=== PATIENT | female | born 1985 ===

== ENCOUNTER 2016-09-15 04:18 | Emergency (ER) | payer OTHER ==
[2016-09-15 04:22] VITALS: TEMP 99.3
--- NOTE | 2016-09-15 05:12 | ED PDOC ---
Lower Extremity Pain/Injury Chief Complaint (Provider): Fall out of bed History Per: Patient History/Exam Limitations: no limitations Onset/Duration Of Symptoms: Other ([facility] 2:30 a.m. on 09/15/16 ) Current Symptoms Are (Timing): Still Present Severity: Moderate Pain Scale Rating Of: 7 Additional Complaint(s): 31 y.o. female with complaint of fall out of bed shortly before arrival at [facility] 2:30 a.m. Pt. reports falling on hard wood floor from bed. Pt. denies any head trauma. Pt. reports was not able to bare weight and pain was bearable and attempted to fall asleep but got up because of the pain and decided to come to the E.R. - Hip Description Of Injury: Fell (out of bed ) Currently Unable To: Bear Weight (due to pain) - Knee Description Of Injury: Fell (denies head trauma ) <Dinh Pozo - Last Filed: 09/15/16 06:53> <Kyle Martinez - Last Filed: 09/15/16 07:02> Time Seen by Provider: 09/15/16 04:25 Chief Complaint (Nursing): Lower Extremity Problem/Injury Supervising Attending Note - Attestation: I have personally seen and examined this patient.: Yes I have fully participated in the care of the patient.: Yes I have reviewed all pertinent clinical information, including history, physical exam and plan: Yes - Notes: Notes:: 5th metatarsal fx after falling off bed, no NV compromise, podiatry aware, will sign out to day team pending orhto recs. <Kyle Martinez - Last Filed: 09/15/16 07:02> Past Medical History Vital Signs: Last Vital Signs Temp 99.3 F 09/15/16 04:20 Pulse 76 09/15/16 04:20 Resp 18 09/15/16 04:20 BP 119/63 09/15/16 04:20 Pulse Ox 100 09/15/16 04:20 - Medical History PMH: No Chronic Diseases - Surgical History Other surgeries: Ear tubes, breast cyst - Family History Family History: States: Other - Social History Current smoker - smoking cessation education provided: No Alcohol: Other (Had 6 alcoholic beverages today) Drugs: Denies <Dinh Pozo - Last Filed: 09/15/16 06:53> Vital Signs: Last Vital Signs Temp 99.3 F 09/15/16 04:20 Pulse 76 09/15/16 04:20 Resp 18 09/15/16 04:20 BP 119/63 09/15/16 04:20 Pulse Ox 100 09/15/16 06:53 <Kyle Martinez - Last Filed: 09/15/16 07:02> - Allergies Allergies/Adverse Reactions: Allergies Allergy/AdvReac Type Severity Reaction Status Date / Time Penicillins Allergy Verified 09/15/16 05:00 Wells Criteria for PE - Wells Criteria for Pulmonary Embolism Clinical Signs and Symptoms of DVT: No P.E is #1 Diagnosis, or Equally Likely: No Heart Rate >100: No Immobilization at least 3 days;Surgery previous 4 weeks: No Previous, objectively diagnosed PE or DVT: No Hemoptysis: No Malignancy w/treatment within 6 months, or palliative: No Total Score: 0 <Dinh Pozo - Last Filed: 09/15/16 06:53> Review of Systems Constitutional: Negative for: Fever, Chills, Sweats Eyes: Negative for: Pain, Vision Change ENT: Negative for: Ear Pain, Ear Discharge Cardiovascular: Negative for: Chest Pain, Palpitations, Orthopnea Respiratory: Negative for: Cough, Shortness of Breath, Hemoptysis Gastrointestinal: Negative for: Nausea, Vomiting, Abdominal Pain, Diarrhea Genitourinary Female: Negative for: Dysuria, Frequency, Incontinence Musculoskeletal: Negative for: Neck Pain, Shoulder Pain, Arm Pain Neurological: Negative for: Weakness, Numbness, Incoordination, Change in Speech Psych: Negative for: Anxiety, Depression <Dinh Pozo - Last Filed: 09/15/16 06:53> Physical Exam - Reviewed Vital Signs Reviewed: Yes - Physical Exam Appears: Positive for: Well, Non-toxic Head Exam: Positive for: ATRAUMATIC, NORMOCEPHALIC Skin: Positive for: Normal Color, Warm, Dry Neck: Positive for: Normal, Painless ROM, Supple Cardiovascular/Chest: Positive for: Regular Rate, Rhythm. Negative for: Murmur Respiratory: Positive for: Normal Breath Sounds. Negative for: Decreased Breath Sounds, Accessory Muscle Use, Wheezing Gastrointestinal/Abdominal: Positive for: Soft. Negative for: Tenderness Extremity: Positive for: Tenderness (Body of Left 5th Metatarsal ) Neurologic/Psych: Positive for: Alert, pedal assembler II-XII, Oriented <NoheliaDinh - Last Filed: 09/15/16 06:53> - ECG O2 Sat by Pulse Oximetry: 100 - Radiology X-Ray: Viewed By Me (Discussed with Dr. Martinez. Findings consistent with displaced left 5th metatarsal fracture) X-Ray Interpretation: Other (fracture left 5th metatarsal fracture) - Progress ED Course And Treament: Patient given PO Ibuprofen for a pain rated as 7. Discussed with patient the findings of the Xray found to have a displaced fracture and need for evaluation by Podiatry. Patient agrees and reports pain has improved and is currently rated 3. Re-evaluation Time: 06:47 Condition: Improved <PozoDinh - Last Filed: 09/15/16 06:53> Medical Decision Making Medical Decision Makin y.o. female with no significant PMHx/PSHx only usinng nuvaring for contraception evaluted for fall from bed with no head trauma shortly before arrival found to have a displaced fracture of left 5th metatarsal fracture. <PozoDinh - Last Filed: 09/15/16 06:53> [facility] Ankle Rules - Malleolar zone tenderness? Posterior edge or tip of lateral malleolus: No Posterior edge or tip of medial malleolus: No Inability to bear weight both immediately and in the ED: Yes - Midfoot zone tenderness? Base of 5th Metatarsal: Yes (Left) Inability to bear weight both immediately and in the ED: Yes - XRAY INDICATED Is an ankle x-ray indicated based on findings?: Yes <NoheliaDinh - Last Filed: 09/15/16 06:53> Disposition - Disposition Disposition Time: 06:53 <PozoDinh - Last Filed: 09/15/16 06:53> - Disposition Disposition: Transfer of Care Disposition Time: 07:00 Patient Signed Over To: Fabby You Handoff Comments: pending podiatry recs <Kyle Martinez - Last Filed: 09/15/16 07:02> - Clinical Impression Clinical Impression: Metatarsal stress fracture of left foot - Disposition Condition: FAIR
--- NOTE | 2016-09-15 06:59 | CP.PCM.CON ---
History of Present Illness - History of Present Illness History of Present Illness: PODIATRY CONSULT NOTE DR. NINO: This is a 31 yo female pt who presents to the ED this morning with left foot pain. Pt says she was drinking last night (had about 6 beers) and fell out of bed earlier this morning. Says she landed on the outside of her left foot and went back to bed. Later on she woke up with 10/10 pain and was unable to bear weight to the left foot. Denies taking anything for the pain at home, denies icing. Decided to call ambulance because of the pain. Denies any head trauma or any other injuries. PMH: unremarkable ALL: PCN Meds: oral contraceptive SHx: excision mass left breast, wisdom teeth FH: unremarkable Soc. Hx: lives in [place] (works in [employer] in [place]), occasional cigarettes , social ETOH, denies illicit drug use. Review of Systems - Review of Systems Review of Systems: All systems reviewed and found to be negative, except pertinent HPI findings above Past Patient History - Past Social History Alcohol: Other (Had 6 alcoholic beverages today) Drugs: Denies - PSYCHIATRIC Hx Substance Use: Yes (not for a long time) - SURGICAL HISTORY Other/Comment: lumpectomy - ANESTHESIA Hx Anesthesia: Yes Meds Allergies/Adverse Reactions: Allergies Allergy/AdvReac Type Severity Reaction Status Date / Time Penicillins Allergy Verified 09/15/16 05:00 Physical Exam - Constitutional Appears: Well, Non-toxic, No Acute Distress - Extremities Exam Extremities exam: Negative for: calf tenderness Additional comments: Left lower extremity exam: VASC- DP/PT pulses palpable, skin temp wnl, cft <3 sec to digits x 5, moderate non-pitting edema noted to lateral aspect of foot DERM- no open lesion, no erythema NEURO- grossly intact ORTHO- pt able to flex and extend all digits (ROM limited due to guarding), pain with AJ DF and PF, pain with STJ inversion/eversion, pain to palpation lateral aspect of 5th metatarsal mid-shaft - Neurological Exam Neurological exam: Alert, CN II-XII Intact, Oriented x3 - Psychiatric Exam Psychiatric exam: Normal Affect, Normal Mood Results - Vital Signs Recent Vital Signs: Last Vital Signs Temp 99.3 F 09/15/16 04:20 Pulse 76 09/15/16 04:20 Resp 18 09/15/16 04:20 BP 119/63 09/15/16 04:20 Pulse Ox 100 09/15/16 06:53 Assessment & Plan - Assessment and Plan (Free Text) Assessment: 31 yo female patient w/ unremarkable pmhx presents with pain and displaced, angulated fracture of left 5th metatarsal Plan: -Pt S&E at bedside in ED -Plan discussed w/ attending Dr. Nino in detail -Chart reviewed -Discussed w/ pt that she will require surgery to correct foot fracture -Posterior splint w/ crutches -Advised pt to ice behind knee, elevated extremity, strict NWB w/ crutches -Recommend NSAIDS for pain and edema -Pre-operative labs to be drawn -Pt to f/u w/ Dr. Zena Nino at [facility], [place] next week. -Stable for d/c home per podiatry
[2016-09-15 07:19] VITALS: BP 122/72; PULSE 87; RESP 19; O2SAT 97
--- NOTE | 2016-09-15 07:47 | ED PDOC ---
- ECG O2 Sat by Pulse Oximetry: 97 Medical Decision Making Medical Decision Making: Time: 0700 Patient signed out by Dr. Martinez pending podiatry consult Scribe Attestation: Documented by Bernadette Kahn acting as a scribe for Fabby You MD MD Scribe Attestation: All medical record entries made by the Scribe were at my direction and personally dictated by me. I have reviewed the chart and agree that the record accurately reflects my personal performance of the history, physical exam, medical decision making, and the department course for this patient. I have also personally directed, reviewed, and agree with the discharge instructions and disposition. Disposition - Clinical Impression Clinical Impression: Metatarsal stress fracture of left foot - Disposition Referrals: Ihsan Nino DPM [[facility]] - Condition: STABLE Prescriptions: Naproxen [Naprosyn] 500 mg PO BID PRN #20 tablet PRN Reason: Pain, Moderate (4-7) Instructions: Foot Fracture in Adults (ED) Forms: [facility] ED School/Work Excuse
--- NOTE | 2016-09-15 07:47 | ED PDOC ---
- ECG O2 Sat by Pulse Oximetry: 97 Medical Decision Making Medical Decision Making: received patient from Dr. Martinez. Patient will followup with Dr. Nino for her fractured foot. Disposition Doctor Will See Patient In The: Office Counseled Patient/Family Regarding: Diagnosis, Need For Followup, Rx Given - Clinical Impression Clinical Impression: Metatarsal stress fracture of left foot - POA Present On Arrival: Falls Or Trauma - Disposition Referrals: Ihsan Nino DPM [[facility]] - Disposition: Routine/Home Disposition Time: 07:15 Condition: STABLE Prescriptions: Naproxen [Naprosyn] 500 mg PO BID PRN #20 tablet PRN Reason: Pain, Moderate (4-7) Instructions: Foot Fracture in Adults (ED) Forms: [facility] ED School/Work Excuse
[2016-09-15 08:22] LABS: BASO % 0.5 % (0.0-2.0); EOS % 0.3 % (0.0-4.0); HEMATOCRIT 36.9 % (34.0-47.0); LYMPH # 1.2 K/uL (1.0-4.3); LYMPH % 12.6 % (20.0-40.0); MEAN CELL VOLUME 85.5 fl (81.0-99.0); MEAN CORPUSCULAR HEMOGLOBIN 28.1 pg (27.0-31.0); MEAN CORPUSCULAR HGB CONC 32.9 g/dL (33.0-37.0); MEAN PLATELET VOLUME 8.8 fl (7.2-11.7); MONO # 0.2 K/uL (0.0-0.8); MONO % 2.1 % (0.0-10.0); NEUT # 7.9 K/uL (1.8-7.0); NEUT % 84.5 % (50.0-75.0); RED CELL DISTRIBUTION WIDTH 13.4 % (11.5-14.5); WHITE BLOOD COUNT 9.3 K/uL (4.8-10.8)
[2016-09-15 08:33] LABS: PARTIAL THROMBOPLASTIN TIME 24.2 SECONDS (23.3-32.5)
[2016-09-15 08:37] LABS: BLOOD UREA NITROGEN 8 mg/dl (7-17); CALCIUM 9.2 mg/dL (8.4-10.2); CARBON DIOXIDE 19 mmol/L (22-30); CHLORIDE 110 mmol/L (98-107); GFR AFRICAN-AMERICAN > 60; GLUCOSE,RANDOM 88 mg/dL (65-105); POTASSIUM 3.8 MMOL/L (3.6-5.0); SODIUM 145 mmol/l (132-148)
--- NOTE | 2016-09-15 10:38 | RAD ---
PROCEDURE: Left Foot Radiographs. Syl[place] HISTORY: s/p fall, TTP at base of 5th metatarsal COMPARISON: None. FINDINGS: BONES: There is an acute displaced fracture in the distal diaphysis of the 5th metatarsal with 1 shaft width medial displacement. JOINTS: There is moderate lateral soft tissue swelling. SOFT TISSUES: Normal. OTHER FINDINGS: None. IMPRESSION: Acute displaced fracture in the distal diaphysis of the 5th metatarsal with 1 shaft with medial displacement and moderate overlying soft tissue swelling.
== END 2016-09-15 08:01 | disposition home or self-care (01) ==
LOC: H.ER 04:18
DX: M84.375A Stress fracture, left foot, initial encounter for fracture (principal); W06.XXXA Fall from bed, initial encounter; Y92.003 Bedroom of unspecified non-institutional (private) residence as the place of occurrence of the external cause; Z88.0 Allergy status to penicillin